=== PATIENT | female | born 1965 | race Hispanic/Latino ===

== ENCOUNTER 2021-10-07 07:02 | Day surgery (SDC) | payer BC, SELFPAY ==
[2021-10-07] MEDS ORDERED: NA CHLORIDE 0.9% 500 ML ONE (07:38)
[2021-10-07 09:16] VITALS: BMI 36.0
[2021-10-07] MEDS ORDERED: HEPARIN 500 UNIT/5 ML SYR IV ONE (14:35)
[2021-10-07 14:45] LABS: Hematocrit 30.9 % (36.0-45.0)
[2021-10-07 14:49] VITALS: BP 125/78; TEMP 97.1; O2SAT 100
== END 2021-10-07 14:45 | disposition home or self-care (01) ==
LOC: DS 07:02
PROVIDERS: ATTEND Internal Medicine Medical Oncology
DX: D64.81 Anemia due to antineoplastic chemotherapy (principal)
CPT/HCPCS: 36415; 86900; 86850; 86901; 85018; 85014; 36430; 96523; J1642; P9016 ×2; J7050

== ENCOUNTER 2022-03-21 11:45 | Day surgery (SDC) | payer BC ==
[2022-03-21] MEDS ORDERED: Ringers Lactate 1,000 ML IV ONE (12:10)
[2022-03-21] MEDS ORDERED: ONDANSETRON 4 MG/2 ML VIAL ONE (15:46)
[2022-03-21] MEDS ORDERED: propofoL 200 MG/20 ML VIAL IV ONE (15:46)
[2022-03-21] MEDS ORDERED: dexAMETHasone 10 MG/ML VIAL ONE (15:46)
[2022-03-21] MEDS ORDERED: FENTANYL CITR 100 MCG/2 ML ONE (15:46)
[2022-03-21] MEDS ORDERED: LIDOCAINE 2% MPF 5 ML VIAL ONE (15:46)
[2022-03-21] MEDS ORDERED: LIDOCAINE 1% W/EPI 1:100,000 MDV 20 ML VIAL ONE ×2 (15:46→16:21)
[2022-03-21] MEDS ORDERED: MIDAZOLAM HCL 2 MG/2 ML INJ ONE (15:46)
[2022-03-21] MEDS ORDERED: KETOROLAC 30 MG/ML INJ ONE (15:46)
[2022-03-21] MEDS ORDERED: IBUPROFEN 200 MG TAB PO PRN (17:04)
[2022-03-21] MEDS ORDERED: HYDROCODONE/APAP 5/325 MG TAB PO PRN (17:04)
[2022-03-21] MEDS ORDERED: PROMETHAZINE INJ 25 MG/ML AMP IV PRN (17:04)
[2022-03-21] MEDS ORDERED: PROCHLORPERAZINE MALEATE 10 MG PO PRN (17:06)
--- NOTE | 2022-03-21 17:08 | P.BOP ---
Preoperative diagnosis: PMB Postoperative diagnosis: same Primary procedure: Hysteroscopy d/c Estimated blood loss: min Specimen: EMC with pipelle Findings: stenotic os, thin Anesthesia: MAC Transferred to: Recovery Room Condition: Good
[2022-03-21 17:46] VITALS: BP 145/72; TEMP 97.8; O2SAT 99
[2022-03-21] MEDS ORDERED: HOME MED 1 EA UNK (Potassium Chloride [Potassium Chloride] 20 MEQ Tablet.Er) PO SCH (21:00)
[2022-03-21] MEDS ORDERED: HOME MED 1 EA UNK (Tolterodine Tartrate [Tolterodine Tartrate] 2 MG Tablet) PO SCH (21:00)
[2022-03-22] MEDS ORDERED: HOME MED 1 EA UNK (Cholecalciferol (Vitamin D3) [Vitamin D3] 1,000 UNIT Capsule) PO SCH (09:00)
[2022-03-22] MEDS ORDERED: HOME MED 1 EA UNK (Escitalopram Oxalate [Escitalopram Oxalate] 10 MG Tablet) PO SCH (09:00)
[2022-03-22] MEDS ORDERED: HOME MED 1 EA UNK (Olanzapine [Olanzapine] 5 MG Tablet) PO SCH (09:00)
[2022-03-22] MEDS ORDERED: FAMCICLOVIR 250 MG PO SCH (09:00)
== END 2022-03-21 17:45 | disposition home or self-care (01) ==
LOC: OR 11:45
PROVIDERS: ATTEND Obstetrics & Gynecology
PROC: 0UJD8ZZ Inspection of Uterus and Cervix, Via Natural or Artificial Opening Endoscopic (ICD-10-PCS; 2022-03-21)
PROC: 0UDB7ZX Extraction of Endometrium, Via Natural or Artificial Opening, Diagnostic (ICD-10-PCS; principal; 2022-03-21 13:45)
DX: N95.0 Postmenopausal bleeding (principal); D25.9 Leiomyoma of uterus, unspecified; N39.3 Stress incontinence (female) (male); N81.2 Incomplete uterovaginal prolapse; Z85.3 Personal history of malignant neoplasm of breast; Z20.822 Contact with and (suspected) exposure to COVID-19
CPT/HCPCS: 88305; 58558; U0003; J2704; J2250; J3010; J1100; J7120; J2405

== ENCOUNTER 2022-05-31 07:20 | Day surgery (SDC) | payer BC ==
[2022-05-26 12:15] LABS: Absolute Lymphocytes (CBC) 1.3 K/uL (0.7-4.9); Hematocrit 36.2 % (36.0-45.0); Lymphocytes % 11.5 % (15.3-44.8); MCV 89.9 fL (80-100); MPV 7.5 fL (7.6-11.3); RBC Red Blood Cell Count 4.02 M/uL (3.86-4.86)
[2022-05-26 12:19] LABS: Protime INR 1.03
[2022-05-26 12:46] LABS: SARS-CoV-2 Antigen Rapid Res Negative (Negative)
[2022-05-26 12:58] LABS: Potassium 3.9 mmol/L (3.5-5.1)
[2022-05-26 13:09] LABS: Urine Color Yellow (Yellow)
[2022-05-26 13:10] LABS: Specific Gravity >= 1.030 (1.005-1.030); Urine Clarity Clear (Clear); Urine Glucose Negative (Negative)
[2022-05-26 13:12] LABS: Urine Blood Negative (Negative)
[2022-05-26 13:13] LABS: Urine Protein Negative (Negative); Urine Urobilinogen 0.2 mg/dL (0.2-1.0); Urine pH 5.5 (5.0-7.0)
[2022-05-26 14:01] LABS: Urine Bilirubin 1+ (Negative)
[2022-05-31] MEDS ORDERED: propofoL 200 MG/20 ML VIAL IV ONE (07:38)
[2022-05-31] MEDS ORDERED: ROCURONIUM 50 MG/5 ML VIAL IV ONE ×2 (07:39→09:57)
[2022-05-31] MEDS ORDERED: MIDAZOLAM HCL 2 MG/2 ML INJ ONE (07:39)
[2022-05-31] MEDS ORDERED: FENTANYL CITR 250 MCG/5 ML ONE (07:39)
[2022-05-31] MEDS ORDERED: ONDANSETRON 4 MG/2 ML VIAL ONE ×2 (07:40→13:15)
[2022-05-31] MEDS ORDERED: NEOSTIGMINE 1 MG/ML -10 ML VIAL ONE (07:42)
[2022-05-31] MEDS ORDERED: GLYCOPYRROLATE 0.2 MG/ML SYR ONE (07:42)
[2022-05-31] MEDS ORDERED: SCOPOLAMINE HYDROBROMIDE PATCH TD ONE (07:51)
[2022-05-31] MEDS ORDERED: Ringers Lactate 1,000 ML IV ONE ×2 (07:52→15:30)
[2022-05-31 09:15] LABS: Urine Specific Gravity/Preg 1.025 (1.005-1.030)
[2022-05-31] MEDS: CEFAZOLIN 3 GM in NA CHLORIDE 0.9% 100 ML IVPB ONE ×2 (09:15→09:18)
[2022-05-31] MEDS: BUPIVACAINE 0.25% PF 10 ML VIAL ONE ×2 (09:18→09:50)
[2022-05-31] MEDS ORDERED: LIDOCAINE 1% MPF 5 ML VIAL ONE (09:24)
[2022-05-31] MEDS ORDERED: Phenylephrine HCl 10 MG/ML 1 ML VIAL ONE (09:35)
[2022-05-31] MEDS ORDERED: NA CHLORIDE 0.9% 1,000 ML ONE (10:44)
[2022-05-31] MEDS ORDERED: KETOROLAC 30 MG/ML INJ ONE (12:29)
[2022-05-31] MEDS ORDERED: PROMETHAZINE INJ 25 MG/ML AMP ONE (13:27)
[2022-05-31] MEDS ORDERED: dexAMETHasone 4 MG/ML VIAL ONE (13:27)
--- NOTE | 2022-05-31 13:33 | P.BOP ---
Preoperative diagnosis: PMB, [place], Uterovaginal prolapse stage 1 Postoperative diagnosis: same Primary procedure: TLH BSO, USLS colpopexy, Urethral bulking, Cystoscopy Manager Water: Araceli Resendez Estimated blood loss: min Specimen: uterus tubes ovaries Findings: point C=-3, cysto ureteric orifices patent Anesthesia: General Complications: None Implants: Bulkamid Fluids & blood products: 1500 LR, UO 200 Transferred to: Recovery Room Condition: Good
[2022-05-31 14:18] VITALS: BP 146/81; TEMP 98.3; O2SAT 96
[2022-05-31] MEDS ORDERED: HYDROCODONE/APAP 5/325 MG TAB ONE (15:30)
--- NOTE | 2022-06-01 19:39 | OP ---
Date of Procedure: 05/31/2022 Surgeon: Gely Mina MD Financial Analysis Advisor: Araceli Greene. Preoperative Diagnoses: Postmenopausal bleeding; stress urinary incontinence; uterovaginal prolapse, stage I. Postoperative Diagnoses: Postmenopausal bleeding; stress urinary incontinence; uterovaginal prolapse , stage I. Procedures Performed: Total laparoscopic hysterectomy, bilateral salpingo-oophorectomy, uterosacral ligament suspension colpopexy, urethral bulking, and cystoscopy. Anesthesia: General endotracheal. Estimated Blood Loss: Minimal. Specimens: Uterus, tubes, and ovaries. Findings: Point C was at -3, point BA was at -1, prior to the surgery, and once the suspension was d one, point C was at -8, and point AA and BA were -2 and -2. Patient still had a posterior defect, di stal perineal body defect which she did not complain of and were not repaired. Cystoscopy was performed. Both ureteric orifices had very good jets of urine. Complications: No complications. Drains: None. Implants: Bulkamid 0.9 mL was used. Lr: 1500 of LR. Urine Output: 200 of urine output. Disposition: Transferred to the recovery room in stable condition. Description Of Procedure: After informed consent was verified, patient was taken back to the OR. Sh e was placed in a supine fashion on the operating table. 2 g of Ancef were given. SCDs were started . Time-out was done. After general endotracheal intubation, patient was placed in a dorsal lithotomy position using Yordan stirrups. Abdomen, vulva, vagina, and perineum were prepped and draped in a sterile fashion. Banerjee was placed to drain the bladder and a large VCare was then introduced into the uterus. It was diffic ult to insert the tip of the vaginal manipulator all the way to the fundus due to her endometrial abl ation. However, this was stable enough and was fixed in place. This area was draped. 1 cm supraumbilical incision was made with a scalpel using the open laparoscopy technique. Fascia wa s incised, tagged with 0 Vicryl sutures and peritoneum entered sharply. S-retractors were placed and after adequate insufflation, site of entry was checked and was unremarkable. Patient placed in [facility]. A lateral left lower quadrant 8 port, right 5 port, and suprapubic 10/12 ports were placed. After visual examination of the entire peritoneal cavity, there were no abnormalities. The case was started. Epiploica of the sigmoid colon was sutured with the two 3-0 Monocryl suture, brought out th rough the right upper quadrant Rikki-Felix needle. This was held on a clamp for retraction. The broad ligament lateral to the IP was opened up from the round ligament all the way down. Then, u reter was identified and between the ureter and the IP, the peritoneum was opened up posteriorly as w ell and the pedicle of the IP was taken down with the help of the LigaSure and round ligament was enrique en down as well, and broad ligament opened up anteriorly and posteriorly. Anteriorly, bladder flap w as raised, posteriorly taken down to the posterior cup and the uterosacral. Old endometriosis scar w as seen and this was also taken down. The ureter was safe caudad, laterally. The uterosacral ligaments were identifiable. However, there was not a very strong support at the ape x. A similar dissection was performed on the opposite side to open up the lateral broad ligament. IP is olated, taken down, round ligament taken down, broad ligament anteriorly connected to finish the blad niles flap and the bladder was held with 2 clamps and dissected with 2 atraumatic graspers and dissecte d down at least 2.5 cm to expose a good amount of the anterior vaginal wall below the cup. Posterior peritoneum taken down to the uterosacral attachment on the posterior cup and vessels were i solated, taken down with the help of the LigaSure. Circumferential colpotomy was performed with a mo nopolar hook blade and the specimen detached and removed through the vagina with ovaries and tubes at tached on both sides. Vaginal cuff was closed with 2-0 Vicryl sutures at both angles and two-layer V-Loc closure. After thorough irrigation, suction, the vaginal manipulator with EEA Sizer was used to elevate the cu ff and the anterior wall. The uterosacral ligaments were identified. After identifying the ureters and the ureteric tunnel, the distal uterosacral ligament was picked up with the help of 3-0 Monocryl suture, passed through the ligament for help for retraction and as 2-0 PDS suture was taken and it wa s placed medial to lateral, lateral to medial and through the posterior vaginal wall and anterior vag inal wall and tied down. A similar stitch was placed on the opposite side after isolating with a 3-0 Monocryl. The 2-0 PDS was placed and the apex was attached. Both sutures were tied down at least w ith 3 knots. Then we went on to perform a cystoscopy with a 17-Cuban sheath, 30-degree lens, normal saline. The entire bladder was inspected. No evidence of any foreign body or trauma. Both ureteri c orifices had strong jets of urine readily and once this was visualized, the scope was removed. Zachery dder was drained. Banerjee was replaced. After gloves were changed, we came back up and tied the rest of the knots on the PDS sutures on both sides. There was excellent elevation while I did the pelvic exam below. So there was no need for fu rther attachment to the center or culdoplasty. A thorough irrigation suction was performed. Excellent hemostasis was secured. All the trocars rubén boni under direct vision after releasing the bowel, and the gas was desufflated. Fascial incision was closed with 0 Vicryl sutures in the supraumbilical incision and then in the suprapubic region as wel l. All skin incisions closed with 4-0 chromic. The Banerjee was removed. A pediatric cystoscope was then taken with the sheath of the Bulkamid standpipe tender d to it. The bladder was completely drained by this time. So I inserted this with a small dribble, closing the drain for the sheath. The Bulkamid needle was taken and inserted with the Bulkamid gel attached in a syringe. After taking the tip of the pediatric cystoscope through the internal meatus, the needle was extended 2 cm into the bladder and the entire system withdrawn back 2 cm to be in the mid urethra. The injec tion was started at 5 o'clock position, 2.5 mL was injected; then turned to 2 o'clock, 2.5 mL injecte d; then went on to 10 o'clock, only 1.5 mL was injected here. There was an air bubble once this was released. I injected another 2.5 mL at 7 o'clock. There was a good occlusion and the procedure was completed. The scope was removed. A red rubber catheter 12-Cuban was inserted into the urethra to drain the bladder partially, but also to create the opening and the patency. All the instruments were removed. Instrument and sponge counts were correct at the end of the case. Patient tolerated the procedure well, recovered from anesthesia and taken to PACU in stable conditio n for voiding trials. The patient was unable to void later in the evening and only voided small amounts with a large PVR. So a 12-Cuban Banerjee was inserted and the patient was sent home with the bag. This will be removed t han and tomorrow and she will have a voiding trial. RODERICK/BROWN Voice ID: [id number] Report ID: [id number]
== END 2022-05-31 18:35 | disposition home or self-care (01) ==
LOC: OR 07:20
PROVIDERS: ATTEND Obstetrics & Gynecology
PROC: 0UT24ZZ Resection of Bilateral Ovaries, Percutaneous Endoscopic Approach (ICD-10-PCS; 2022-05-31)
PROC: 0UT74ZZ Resection of Bilateral Fallopian Tubes, Percutaneous Endoscopic Approach (ICD-10-PCS; 2022-05-31)
PROC: 0USG7ZZ Reposition Vagina, Via Natural or Artificial Opening (ICD-10-PCS; 2022-05-31)
PROC: 0TVD8ZZ Restriction of Urethra, Via Natural or Artificial Opening Endoscopic (ICD-10-PCS; 2022-05-31)
PROC: 0UT94ZZ Resection of Uterus, Percutaneous Endoscopic Approach (ICD-10-PCS; principal; 2022-05-31 08:30)
DX: N95.0 Postmenopausal bleeding (principal); N39.3 Stress incontinence (female) (male); N81.2 Incomplete uterovaginal prolapse; Z85.3 Personal history of malignant neoplasm of breast; Z20.822 Contact with and (suspected) exposure to COVID-19
CPT/HCPCS: 85025; 80048; 36415; 86900; 86850; 81025; 85610; 86901; 88305; 85730; 81003; 87811; 58571; 57283; 51715; J2704; J1100; J2710; J2550; J2370; J2250; J3010; J7120 ×2; J7030; J2405 ×2; J0690; L8606; 88307

== ENCOUNTER 2022-10-04 06:35 | Day surgery (SDC) | payer BC ==
[2022-10-04] MEDS ORDERED: FENTANYL CITR 100 MCG/2 ML ONE (06:45)
[2022-10-04] MEDS ORDERED: dexAMETHasone 10 MG/ML VIAL ONE (06:45)
[2022-10-04] MEDS ORDERED: MIDAZOLAM HCL 2 MG/2 ML INJ ONE (06:45)
[2022-10-04] MEDS ORDERED: LIDOCAINE 2% MPF 5 ML VIAL ONE (06:45)
[2022-10-04] MEDS ORDERED: ROCURONIUM 50 MG/5 ML VIAL IV ONE (06:45)
[2022-10-04] MEDS ORDERED: propofoL 200 MG/20 ML VIAL IV ONE (06:45)
[2022-10-04] MEDS ORDERED: ONDANSETRON 4 MG/2 ML VIAL ONE (06:46)
[2022-10-04] MEDS ORDERED: Ringers Lactate 1,000 ML IV ONE (06:53)
[2022-10-04] MEDS: BUPIVACAINE 0.25% PF 30 ML VIAL ONE ×5 (07:49→08:50)
[2022-10-04] MEDS: CEFAZOLIN SODIUM 2 GM/VIAL ONE ×2 (07:49→08:05)
[2022-10-04] MEDS ORDERED: KETOROLAC 30 MG/ML INJ ONE (09:10)
[2022-10-04 10:52] VITALS: BP 140/80; TEMP 97.1; O2SAT 99
--- NOTE | 2022-10-04 11:49 | RAD REPORT ---
EXAM DESCRIPTION: RAD - Fluoroscopy <1 Hour - 10/04/2022 11:42 am CLINICAL HISTORY: FLUORO WITH DR LEGGETT ROOM 1 COMPARISON: No comparisons FINDINGS: Fluoroscopy time: 1.6 minutes
== END 2022-10-04 10:45 | disposition home or self-care (01) ==
LOC: OR 06:35
PROVIDERS: ATTEND Obstetrics & Gynecology
PROC: 01HY3MZ Insertion of Neurostimulator Lead into Peripheral Nerve, Percutaneous Approach (ICD-10-PCS; principal; 2022-10-04 07:30)
DX: N32.81 Overactive bladder (principal); N39.3 Stress incontinence (female) (male); Z85.3 Personal history of malignant neoplasm of breast; N81.2 Incomplete uterovaginal prolapse; R10.32 Left lower quadrant pain
CPT/HCPCS: 76000; 64561; J2704; J2001; J2250; J3010; J1100; J7120; J2405

== ENCOUNTER 2022-10-11 07:23 | Day surgery (SDC) | payer BC ==
[2022-10-11] MEDS ORDERED: CEFAZOLIN SODIUM 2 GM/VIAL ONE (08:00)
[2022-10-11] MEDS ORDERED: Ringers Lactate 1,000 ML IV ONE (08:01)
[2022-10-11] MEDS ORDERED: LIDOCAINE 2% MPF 5 ML VIAL ONE (08:45)
[2022-10-11] MEDS ORDERED: MIDAZOLAM HCL 2 MG/2 ML INJ ONE (08:45)
[2022-10-11] MEDS ORDERED: dexAMETHasone 4 MG/ML VIAL ONE (08:45)
[2022-10-11] MEDS ORDERED: propofoL 200 MG/20 ML VIAL IV ONE ×2 (08:45→09:26)
[2022-10-11] MEDS ORDERED: ONDANSETRON 4 MG/2 ML VIAL ONE (08:45)
[2022-10-11] MEDS ORDERED: FENTANYL CITR 100 MCG/2 ML ONE (08:45)
[2022-10-11] MEDS: LIDOCAINE 1% W/EPI 1:100,000 30 ML VIAL ONE ×2 (08:59→09:23)
[2022-10-11] MEDS ORDERED: KETOROLAC 30 MG/ML INJ ONE (09:50)
[2022-10-11 11:38] VITALS: BP 103/63; TEMP 97.3; O2SAT 98
== END 2022-10-11 11:10 | disposition home or self-care (01) ==
LOC: OR 07:23
PROVIDERS: ATTEND Obstetrics & Gynecology
PROC: 0JH73BZ Insertion of Single Array Stimulator Generator into Back Subcutaneous Tissue and Fascia, Percutaneous Approach (ICD-10-PCS; principal; 2022-10-11 08:30)
DX: N32.81 Overactive bladder (principal); Z85.3 Personal history of malignant neoplasm of breast
CPT/HCPCS: 64590; J2704 ×2; J1100; J2001; J2250; J3010; J7120; J2405